=== PATIENT | male | born 1955 | race Caucasian/White ===

== ENCOUNTER 2020-01-31 13:21 | Outpatient (REF) | payer MEDICARE, SELFPAY ==
[2020-01-31 21:07] LABS: Hemoglobin A1C 7.3 % (3.8-5.6)
[2020-01-31 21:26] LABS: ALT 55 U/L (16-63); AST 40 U/L (15-37); Albumin 3.9 g/dL (3.4-5.0); Alkaline Phosphatase 80 U/L (46-116); Anion Gap 8.2 mmol/L (3-11); BUN 21 mg/dL (7-18); Bilirubin, Total 0.8 mg/dL (0.2-1.0); CO2 30.8 mmol/L (21.0-32.0); CREATININE 1.09 mg/dL (0.70-1.30); Calculated LDL 42 mg/dL (<100); Chloride 101 mmol/L (98-107); Cholesterol 87 mg/dL (<200); Glucose 131 mg/dL (74-106); HDL Cholesterol 34 mg/dL (40-60); Sodium 140 mmol/L (136-145); Total Protein 7.6 g/dL (6.4-8.2); Triglyceride 58 mg/dL (<150); Vitamin B12 298 pg/mL (193-986)
== END 2020-01-31 13:41 ==
LOC: NCHCN 13:21
PROVIDERS: PCP Internal Medicine; Visit Provider Internal Medicine
DX: E11.40 Type 2 diabetes mellitus with diabetic neuropathy, unspecified (principal); I10 Essential (primary) hypertension; Z13.6 Encounter for screening for cardiovascular disorders
CPT/HCPCS: 80053; 80061; 82607; 83036

== ENCOUNTER 2020-02-04 23:33 | Outpatient (REF) | payer MEDICARE, SELFPAY ==
[2020-02-04 21:16] LABS: COMMENT (LAB VIEW ONLY) 159.93 mg/dL; Microalb ug/mg Crea 25.1 ug/mg Cr
== END 2020-02-04 23:53 ==
LOC: NCHCN 23:33
PROVIDERS: PCP Internal Medicine; Visit Provider Internal Medicine
DX: E11.9 Type 2 diabetes mellitus without complications (principal)
CPT/HCPCS: 82043; 82570

== ENCOUNTER 2021-01-28 19:11 | Outpatient (REF) | payer MEDICARE, SELFPAY ==
[2021-01-28 22:15] LABS: HCT 43.9 % (40.0-50.0); HGB 14.8 g/dL (13.5-17.5); MCH 29.3 pg (27.0-33.0); MCHC 33.7 % (32.0-36.0); MCV 86.9 fL (80-95); MPV 10.7 fL (8.0-11.0); Platelet Count 211 10^3/uL (130-400); RBC 5.05 10^6/uL (4.36-5.78); RDW 14.1 % (11.8-14.1); RDW-SD 44.5 fL; WBC 9.33 10^3/uL (4.4-10.8)
[2021-01-28 22:31] LABS: ALT 42 U/L (16-63); AST 25 U/L (15-37); Albumin 3.6 g/dL (3.4-5.0); Alkaline Phosphatase 85 U/L (46-116); Anion Gap 8.8 mmol/L (3-11); BUN 18 mg/dL (7-18); Bilirubin, Total 0.5 mg/dL (0.2-1.0); CO2 28.2 mmol/L (21.0-32.0); CREATININE 1.2 mg/dL (0.70-1.30); Calcium 9.7 mg/dL (8.5-10.1); Chloride 102 mmol/L (98-107); Glucose 139 mg/dL (74-106); Potassium 4.1 mmol/L (3.5-5.1); Sodium 139 mmol/L (136-145); Total Protein 7.4 g/dL (6.4-8.2)
[2021-01-28 22:45] LABS: Hemoglobin A1C 6.9 % (<5.7)
== END 2021-01-28 19:12 | disposition home or self-care (01) ==
LOC: NCHCN 19:11
PROVIDERS: PCP Internal Medicine; Visit Provider Internal Medicine
DX: E11.9 Type 2 diabetes mellitus without complications (principal); K76.0 Fatty (change of) liver, not elsewhere classified
CPT/HCPCS: 80053; 85027; 83036

== ENCOUNTER 2021-03-18 15:16 | Outpatient (REF) | payer MEDICARE, SELFPAY ==
--- NOTE | 2021-03-18 13:55 | SKI_PTH ---
PATIENT: Barrera Cope II LOC: [facility] U#:[id number] AGE/SX: 65/M ROOM: RE03/18/[address]: Ann Marie Norwood : 1955 BED: DIS: 03/18/2021 SPEC #: [id number] RECD: 03/19/21 11:23 STATUS: AFTAB JARRETT #: [id number] DREW: 03/18/21 13:[address]: Ann Marie Norwood DEPT: Surgical Specimen RECD BY: Sonam Deras Tissues: 1 - SKIN BIOPSY(SHAVE/PUNCH) Procedures: SKIN LEVEL 4 Comments: [id number]
== END 2021-03-18 15:17 | disposition home or self-care (01) ==
LOC: LBN 15:16
PROVIDERS: PCP Internal Medicine; Visit Provider Internal Medicine
DX: L57.0 Actinic keratosis (principal)
CPT/HCPCS: 88305

== ENCOUNTER 2021-11-16 21:42 | Outpatient (REF) | payer MEDICARE, SELFPAY ==
[2021-11-16 21:21] LABS: COMMENT (LAB VIEW ONLY) 66.29 mg/dL; Microalb ug/mg Crea 26.1 ug/mg Cr
== END 2021-11-16 21:43 | disposition home or self-care (01) ==
LOC: NCHCN 21:42
PROVIDERS: PCP Internal Medicine; Visit Provider Internal Medicine
DX: E11.9 Type 2 diabetes mellitus without complications (principal)
CPT/HCPCS: 82043; 82570

== ENCOUNTER 2022-02-01 17:43 | Outpatient (REF) | payer MEDICARE, SELFPAY ==
[2022-02-01 21:49] LABS: Hemoglobin A1C 6.8 % (<5.7)
[2022-02-01 21:57] LABS: ALT 42 U/L (16-63); AST 30 U/L (15-37); Albumin 3.9 g/dL (3.4-5.0); Alkaline Phosphatase 90 U/L (46-116); Anion Gap 10.4 mmol/L (3-11); BUN 27 mg/dL (7-18); Bilirubin, Total 0.7 mg/dL (0.2-1.0); CO2 26.6 mmol/L (21.0-32.0); CREATININE 1.4 mg/dL (0.70-1.30); Calcium 9.1 mg/dL (8.5-10.1); Chloride 106 mmol/L (98-107); Glucose 171 mg/dL (74-106); Potassium 4.4 mmol/L (3.5-5.1); Sodium 143 mmol/L (136-145); Total Protein 7.6 g/dL (6.4-8.2)
== END 2022-02-01 17:44 | disposition home or self-care (01) ==
LOC: NCHCN 17:43
PROVIDERS: PCP Internal Medicine; Visit Provider Internal Medicine
DX: E11.9 Type 2 diabetes mellitus without complications (principal)
CPT/HCPCS: 80053; 83036

== ENCOUNTER 2022-07-12 18:14 | Outpatient (REF) | payer MEDICARE, SELFPAY ==
--- NOTE | 2022-07-12 16:45 | SKI_PTH ---
PATIENT: Barrera Cope II LOC: [facility] U#:[id number] AGE/SX: 66/M ROOM: RE07/12/[address]: Jacob Ross : 1955 BED: DIS: 07/12/2022 SPEC #: [id number] RECD: 07/13/22 12:34 STATUS: AFTAB REQ #: [id number] DREW: 07/12/22 16:[address]: Jacob Ross DEPT: Surgical Specimen RECD BY: Sonam Deras ENTERED: 07/13/22 12:35 SP TYPE: MAY AHUMADA DR: Ann Marie Norwood Tissues: 1 - SKIN BIOPSY(SHAVE/PUNCH) Procedures: SKIN LEVEL 4 Comments: [id number]
== END 2022-07-12 18:15 | disposition home or self-care (01) ==
LOC: LBN 18:14
PROVIDERS: PCP Internal Medicine; Visit Provider Internal Medicine
DX: L57.0 Actinic keratosis (principal)
CPT/HCPCS: 88305

== ENCOUNTER 2022-11-08 17:51 | Outpatient (REF) | payer MEDICARE, SELFPAY ==
[2022-11-08 21:18] LABS: COMMENT (LAB VIEW ONLY) 46.25 mg/dL; Microalb ug/mg Crea 38.3 ug/mg Cr
== END 2022-11-08 17:52 | disposition home or self-care (01) ==
LOC: NCHCN 17:51
PROVIDERS: PCP Internal Medicine; Visit Provider Internal Medicine
DX: E11.9 Type 2 diabetes mellitus without complications (principal)
CPT/HCPCS: 82043; 82570

== ENCOUNTER 2023-01-31 18:41 | Outpatient (REF) | payer MEDICARE, SELFPAY ==
[2023-01-31 22:23] LABS: ALT 46 U/L (16-63); AST 31 U/L (15-37); Albumin 3.9 g/dL (3.4-5.0); Alkaline Phosphatase 81 U/L (46-116); Anion Gap 7.6 mmol/L (3-11); BUN 20 mg/dL (7-18); Bilirubin, Total 0.6 mg/dL (0.2-1.0); CO2 29.4 mmol/L (21.0-32.0); CREATININE 1.3 mg/dL (0.70-1.30); Calcium 9.6 mg/dL (8.5-10.1); Chloride 104 mmol/L (98-107); Estimated GFR 59.47 (mL/min/1.73m2); Glucose 196 mg/dL (74-106); Potassium 4.3 mmol/L (3.5-5.1); Sodium 141 mmol/L (136-145); Total Protein 8.1 g/dL (6.4-8.2)
[2023-01-31 22:31] LABS: Hemoglobin A1C 7.3 % (<5.7)
== END 2023-01-31 18:42 | disposition home or self-care (01) ==
LOC: NCHCN 18:41
PROVIDERS: PCP Internal Medicine; Visit Provider Internal Medicine
DX: E11.9 Type 2 diabetes mellitus without complications (principal); I10 Essential (primary) hypertension
CPT/HCPCS: 80053; 83036

== ENCOUNTER 2023-08-22 16:10 | Outpatient (REF) | payer MEDICARE, SELFPAY ==
[2023-08-22 22:55] LABS: COMMENT (LAB VIEW ONLY) 43.19 mg/dL; Microalb ug/mg Crea 40.3 ug/mg Cr
[2023-08-25 12:40] LABS: IgA 932 mg/dL (85-499); Interpretation (See Note); Tissue Transglutaminase IgA 1.2 U/mL (<4.0)
== END 2023-08-22 16:11 | disposition home or self-care (01) ==
LOC: NCHCN 16:10
PROVIDERS: PCP Internal Medicine; Visit Provider Internal Medicine
DX: E11.9 Type 2 diabetes mellitus without complications (principal); R21 Rash and other nonspecific skin eruption
CPT/HCPCS: 82784; 83516; 82043; 82570

== ENCOUNTER 2023-09-14 16:50 | Outpatient (REF) | payer MEDICARE, SELFPAY ==
[2023-09-14 21:35] LABS: Abs Immature Grans 0.02 10^3/uL (0.0-0.06); Absolute Basophil Count 0.06 10^3/uL (0.0-0.2); Absolute Eosinophil Count 0.49 10^3/uL (0.0-0.7); Absolute Monocyte Count 0.68 10^3/uL (0.1-0.8); Absolute Neutrophil Count 5.02 10^3/uL (1.2-6.7); Basophils % 0.7; Eosinophils % 5.9; HCT 47.6 % (40.0-50.0); HGB 16.1 g/dL (13.5-17.5); Immature Grans % 0.2; Lymphocytes % 24.2; MCH 29.8 pg (27.0-33.0); MCHC 33.8 % (32.0-36.0); MCV 88 fL (80-95); MPV 10.5 fL (8.0-11.0); Monocytes % 8.2; Neutrophils % 60.8; Platelet Count 208 10^3/uL (130-400); RBC 5.41 10^6/uL (4.36-5.78); RDW 14.1 % (11.8-14.1); RDW-SD 45.2 fL; WBC 8.27 10^3/uL (4.4-10.8)
[2023-09-16 08:51] LABS: Hepatitis C Ab w Rflx HCV PCR Negative (Negative)
[2023-09-16 10:44] LABS: HIV-1/2 Ag & Ab Screen Negative (Negative)
[2023-09-16 11:57] LABS: Albumin 52.5 % (55.8-66.1); Total Protein 7.6 g/dL (6.3-8.2)
== END 2023-09-14 16:51 | disposition home or self-care (01) ==
LOC: NCHCN 16:50
PROVIDERS: PCP Internal Medicine; Visit Provider Internal Medicine
DX: R89.9 Unspecified abnormal finding in specimens from other organs, systems and tissues (principal); Z11.4 Encounter for screening for human immunodeficiency virus [HIV]; Z11.59 Encounter for screening for other viral diseases
CPT/HCPCS: 86803; 87389; 84165; 85025

== ENCOUNTER 2024-03-15 15:20 | Outpatient (REF) | payer MEDICARE, SELFPAY ==
[2024-03-15 21:30] LABS: ALT 56 U/L (16-63); AST 39 U/L (15-37); Albumin 3.8 g/dL (3.4-5.0); Alkaline Phosphatase 89 U/L (46-116); Anion Gap 10.1 mmol/L (3-11); BUN 19 mg/dL (7-18); Bilirubin, Total 0.8 mg/dL (0.2-1.0); CO2 27.9 mmol/L (21.0-32.0); CREATININE 1.4 mg/dL (0.70-1.30); Calcium 9.7 mg/dL (8.5-10.1); Chloride 103 mmol/L (98-107); Estimated GFR 54.07 (mL/min/1.73m2); Glucose 195 mg/dL (74-106); Potassium 4.2 mmol/L (3.5-5.1); Sodium 141 mmol/L (136-145); Total Protein 8.2 g/dL (6.4-8.2)
== END 2024-03-15 15:21 | disposition home or self-care (01) ==
LOC: NCHCN 15:20
PROVIDERS: PCP Internal Medicine; Visit Provider Internal Medicine
DX: E11.9 Type 2 diabetes mellitus without complications (principal); N18.31 Chronic kidney disease, stage 3a
CPT/HCPCS: 80053; 83036

== ENCOUNTER 2024-09-19 08:21 | Outpatient (REF) | payer MEDICARE, SELFPAY ==
[2024-09-18 21:10] LABS: HCT 49.6 % (40.0-50.0); HGB 16.4 g/dL (13.5-17.5); MCH 29.8 pg (27.0-33.0); MCHC 33.1 % (32.0-36.0); MCV 90 fL (80-95); MPV 10.5 fL (8.0-11.0); Platelet Count 194 10^3/uL (130-400); RDW 14.3 % (11.8-14.1)
[2024-09-18 21:29] LABS: ALT 52 U/L (16-63); AST 34 U/L (15-37); Albumin 3.5 g/dL (3.4-5.0); Alkaline Phosphatase 88 U/L (46-116); Anion Gap 8.5 mmol/L (3-11); BUN 23 mg/dL (7-18); Bilirubin, Total 0.64 mg/dL (0.2-1.0); CO2 29.5 mmol/L (21.0-32.0); CREATININE 1.4 mg/dL (0.70-1.30); Calcium 9.7 mg/dL (8.5-10.1); Chloride 105 mmol/L (98-107); Cholesterol 68 mg/dL (<200); Estimated GFR 53.74 (mL/min/1.73m2); Glucose 231 mg/dL (74-106); HDL Cholesterol 37 mg/dL (40-60); Potassium 4.1 mmol/L (3.5-5.1); Sodium 143 mmol/L (136-145); Total Protein 7.8 g/dL (6.4-8.2); Triglyceride 180 mg/dL (<150)
[2024-09-18 21:56] LABS: Hemoglobin A1C 7.6 % (<5.7)
[2024-09-18 22:15] LABS: Uric Acid 4.6 mg/dL (3.5-7.2)
== END 2024-09-19 08:22 | disposition home or self-care (01) ==
LOC: NCHCN 08:21
PROVIDERS: PCP Internal Medicine; Visit Provider Internal Medicine
DX: N18.31 Chronic kidney disease, stage 3a (principal)
CPT/HCPCS: 80053; 80061; 85027; 83036; 84550

== ENCOUNTER 2024-09-27 16:08 | Outpatient (REF) | payer MEDICARE, SELFPAY ==
[2024-09-27 21:58] LABS: COMMENT (LAB VIEW ONLY) 55.76 mg/dL; Microalb ug/mg Crea 44.5 ug/mg Cr
== END 2024-09-27 16:09 | disposition home or self-care (01) ==
LOC: NCHCN 16:08
PROVIDERS: PCP Internal Medicine; Visit Provider Internal Medicine
DX: E11.9 Type 2 diabetes mellitus without complications (principal)
CPT/HCPCS: 82043; 82570

== ENCOUNTER 2025-05-01 19:04 | Outpatient (REF) | payer MEDICARE, MEDICAID, SELFPAY ==
[2025-05-01 21:31] LABS: Hemoglobin A1C 6.8 % (<5.7)
[2025-05-01 21:32] LABS: Anion Gap 9.3 mmol/L (3-11); BUN 27 mg/dL (7-18); CO2 26.7 mmol/L (21.0-32.0); CREATININE 1.6 mg/dL (0.70-1.30); Calcium 9.1 mg/dL (8.5-10.1); Calculated LDL 21 mg/dL (<100); Chloride 102 mmol/L (98-107); Cholesterol 94 mg/dL (<200); Estimated GFR 45.78 (mL/min/1.73m2); Glucose 257 mg/dL (74-106); HDL Cholesterol 33 mg/dL (>or=40); Potassium 4.3 mmol/L (3.5-5.1); Sodium 138 mmol/L (136-145); Triglyceride 203 mg/dL (<150)
== END 2025-05-01 19:05 | disposition home or self-care (01) ==
LOC: NCHCN 19:04
PROVIDERS: PCP Internal Medicine; Visit Provider Internal Medicine
DX: E11.9 Type 2 diabetes mellitus without complications (principal); E78.5 Hyperlipidemia, unspecified; N18.31 Chronic kidney disease, stage 3a
CPT/HCPCS: 80048; 80061; 83036

== ENCOUNTER 2025-07-31 16:13 | Outpatient (REF) | payer MEDICARE, MEDICAID, SELFPAY ==
[2025-07-31 21:41] LABS: Anion Gap 5.3 mmol/L (3-11); BUN 18 mg/dL (7-18); CO2 29.7 mmol/L (21.0-32.0); Calcium 9.8 mg/dL (8.5-10.1); Chloride 103 mmol/L (98-107); Estimated GFR 58.73 (mL/min/1.73m2); Glucose 189 mg/dL (74-106); Potassium 4.5 mmol/L (3.5-5.1); Sodium 138 mmol/L (136-145)
[2025-07-31 22:20] LABS: Hemoglobin A1C 7.5 % (<5.7)
[2025-08-01 18:46] LABS: PSA, Screening 1.6 ng/mL (<=6.5)
== END 2025-07-31 16:14 | disposition home or self-care (01) ==
LOC: NCHCN 16:13
PROVIDERS: PCP Internal Medicine; Visit Provider Internal Medicine
DX: E11.9 Type 2 diabetes mellitus without complications (principal); Z12.5 Encounter for screening for malignant neoplasm of prostate; N18.31 Chronic kidney disease, stage 3a
CPT/HCPCS: 80048; 84153; 83036

== ENCOUNTER 2025-11-04 18:18 | Outpatient (REF) | payer MEDICARE, MEDICAID, SELFPAY ==
[2025-11-04 21:30] LABS: Microalb ug/mg Crea 25.0 ug/mg Cr
== END 2025-11-04 18:19 | disposition home or self-care (01) ==
LOC: NCHCN 18:18
PROVIDERS: PCP Internal Medicine; Visit Provider Internal Medicine
DX: E11.9 Type 2 diabetes mellitus without complications (principal)
CPT/HCPCS: 82043; 82570